=== PATIENT | male | born 1960 | race Caucasian/White ===

== ENCOUNTER 2023-07-27 08:16 | Inpatient (IN) | payer BC, SELFPAY ==
[2023-07-23] VITALS (7 sets, daily range): BP systolic 86–134; BP diastolic 37–79; BMI 28.7; BMI 28.3
--- NOTE | 2023-07-23 10:47 | ED.GENMED ---
History of Present Illness
General
Chief Complaint: Abdominal Symptoms
Time Seen by Provider: 07/23/23 10:39
Travel History
Have you had any contact with someone who has COVID-19?: No
Do you have any symptoms of coronavirus? Fever > 100 degrees, chills, cough, shortness of breath, sore throat, loss of taste or smell, muscle aches, or headache?: No
History of Present Illness
History of Present Illness:
63-year-old male with history of hypertension presents to the emergency department for evaluation of abrupt onset of dizziness and vomiting beginning this morning while at work. He states he got up from his back office and walked through his office
building when the symptoms abruptly began. He had a sensation of right-sided ear discomfort associated with the dizziness. Denies any associated fever, chills, sweats, chest pain, shortness of breath. He states the dizziness is since resolved
while he is lying in the bed however when his eyes are open the symptoms recur. Denies any weakness or numbness to the arms or legs. States that he had an upper respiratory tract infection within the past month.
Review of Systems
Review of Systems
Allergies reviewed?: Yes
All Other Systems: ROS reviewed and negative except as documented in HPI and ROS
Phy Exam
Physical Exam
Physical Exam:
GEN: Well appearing, NAD, WDWN
HEENT: Oral mucosa moist, no scleral icterus, no nasal congestion
Cardiac: Regular rate
Lung: No respiratory distress, no tachypnea
MSK: No gross deformity or injuries
Skin: Good color, no pallor or jaundice, no rashes
Neuro: AO x3; CN II-XII grossly intact. BUE strength 5/5 in all pearson, sensation intact and symmetric. BLE strength 5/5 in all pearson, sensation intact and symmetric. Obvious horizontal nystagmus bilaterally, left beating, present at rest. Pt
unable to tolerate head impulse testing due to vomiting
Psych: Calm, cooperative
Course
Orders/Labs/Results
Orders:
Orders
07/23/23 10:39
Electrocardiogram (*1) Urgent
Reason for Study: Syncope
EKG- Treatment ONCE
07/23/23 10:46
Ondansetron Injectable [Zofran] 4 mg IV NOW STA
diazePAM [Valium Injection] 5 mg IV NOW STA
07/23/23 10:47
CT Head W/o Iv Contrast Urgent
Comment:
Reason For Exam: vertigo
07/23/23 10:49
Ondansetron Injectable [Zofran] 4 mg .ROUTE .STK-MED ONE
07/23/23 10:50
diazePAM [Valium Injection] 10 mg .ROUTE .STK-MED ONE
07/23/23 10:52
Complete Blood Count/With Diff Urgent
Comprehensive Metabolic Panel Urgent
07/23/23 13:01
Dexamethasone Sod Phosphate [Decadron] 10 mg IV NOW STA
07/23/23 13:45
Admit/Transfer Patient As Directed
Co-Sign Provider:
Level of Care: Observation services
Assign to:: Medical/Surgical
Physician / Group: galileo/hospitalist
Diagnosis: vertigo
07/23/23 13:46
Code Status As Directed
Resuscitation Status: Full Code
07/23/23 13:48
Potassium Chloride [KCl] 40 meq PO NOW STA
Abnormal Lab Results
07/23/23
10:52
RBC 4.38 L 10^6/uL
(4.70-6.10)
Hct 37.3 L %
(39.0-52.0)
Potassium 3.3 L mmol/L
(3.5-5.1)
Glucose 162 H mg/dl
(70-99)
07/23/23 10:52
07/23/23 10:52
Vital Signs
Initial and Last Documented VS:
Initial Vital Signs
Pulse
68
07/23/23 10:37
Last Documented Vital Signs
Temp Pulse Resp BP Pulse Ox
97.5 F 67 15 86/37 93
07/23/23 10:43 07/23/23 14:00 07/23/23 14:00 07/23/23 14:00 07/23/23 14:00
MDM/Problems Addressed
MDM/Problems Addressed:
Patient symptoms are most consistent with vestibular neuritis given on fatigue nystagmus but the resolved dizziness symptoms while lying flat. He is profoundly vertiginous when attempting to sit upright and is unsteady on his feet. CT of the head
is unremarkable. He has no other neurologic deficits and no visual anomalies concerning for posterior circulation stroke. Do not feel there is any indication for CT angiogram at this juncture. Given lack of other neurofindings do not feel this
represents CVA thus thrombolytics are not indicated. Will admit to the hospitalist service for ongoing treatment of his peripheral vertigo
*Critical Care Note
Total Time (30-74mins, 75-104mins- exclusive of procedures): Not Applicable
ED Attending Note
-
Portions of this chart may have been created with voice recognition software.� Occasional wrong word or��sound alike� substitutions may have occurred due to the inherent limitations of voice recognition software.
Discharge Plan
Departure
Patient Disposition: Admit
Date of Disposition: 07/23/23
Time of Disposition: 13:06
Presentation/result/management discussed w/ accepting MD/DO: Hospitalist
Discharge Problem:
Acute vestibular neuritis
Interventions
Interventions:
*Risk Screen - Suicide Last Done: 07/23/23 10:37
*General Assessment Last Done: 07/23/23 10:37
*Neglect/Abuse Screening Last Done: 07/23/23 10:37
ED- Fall Risk Assessment Last Done: 07/23/23 10:37
RL-Kmskba-Xetrbigftd Assessment Last Done: 07/23/23 10:37
[2023-07-23] MEDS: VALIUM INJECTION 5 MG IV (10:56)
[2023-07-23] MEDS: ZOFRAN 4 MG IV ×2 (10:57→20:07)
[2023-07-23 10:58] LABS: % Basophils 0.5 % (0-2); % Eosinophils 0.5 % (0-6); % Immature Granulocytes 0.3 % (0-0.5); % Lymphocytes 34.9 % (20.5-51.1); % Monocytes 8.3 % (1.7-9.3); % Neutrophils 55.5 % (42.2-75.2); Absolute Lymphocytes 2.1 10^3/uL (1.2-3.4); Absolute Monocytes 0.5 10^3/uL (0.1-0.6); Absolute Neutrophils 3.4 10^3/uL (1.4-6.5); Hematocrit 37.3 % (39.0-52.0); Hemoglobin 13.2 g/dL (13.0-18.0); Mean Corp Hgb Conc. 35.4 g/dL (33.0-37.0); Mean Corpuscular Hgb 30.1 pg (27.0-31.0); Mean Corpuscular Volume 85.2 fL (80.0-94.0); Mean Platelet Volume 9.4 fL (7.4-10.4); Nucleated Red Blood Cells % 0 % (-); Platelet Count 275 10^3/uL (130-400); Red Blood Cell Count 4.38 10^6/uL (4.70-6.10); Red Cell Dist. Width 12.5 % (11.5-14.5); White Blood Cell Count 6.1 10^3/uL (4.8-10.8)
[2023-07-23 11:14] LABS: ALT (SGPT) 24 U/L (0-50); AST (SGOT) 25 U/L (17-59); Albumin 4.3 g/dl (3.5-5.0); Alkaline Phosphatase 74 U/L (38-126); Blood Urea Nitrogen 16 mg/dl (9-20); Calcium 9.2 mg/dl (8.4-10.2); Carbon Dioxide 25 mmol/L (22-30); Chloride 102 mmol/L (98-107); Estimated Creatinine Clearance 81 ml/min; Glucose 162 mg/dl (70-99); Potassium 3.3 mmol/L (3.5-5.1); Sodium 136 mmol/L (135-145); Total Bilirubin 0.6 mg/dl (0.2-1.3); eGFR > 60.00
[2023-07-23] MEDS: DECADRON 10 MG IV (13:26)
--- NOTE | 2023-07-23 13:38 | HPS.HSE ---
Family Physician
-
Family Physician: Alexander Pugh
Chief Complaint
-
dizziness
History of Present Illness
63-year-old male past medical history as below who is presenting from work with acute onset of dizziness. Patient said he was at work stood up and was walking started with feeling of severe dizziness associated with nausea. Also stated of
right-sided ear discomfort currently. Denies tinnitus. Patient called 911 and came into the ER. Patient states the dizziness is resolved. States his symptoms starts when he stands. Currently resting in ER bed without any difficulty. States of
right ear discomfort. Denies any lightheaded or dizziness while lying down. States the nausea has resolved. No vomiting. Denies any other focal weakness. Denies any chest pain shortness of breath. Denies any abdominal pain. Denies any dysuria
or hematuria or numbing or tingling sensation. Denies any neck pain. States he does take a blood pressure medication of losartan/HCTZ and did not eat or drink anything this morning. States he had while upper respiratory tract infection 1 month
ago.
Medical History
Past Medical History
Past Medical History: Reports HTN and Psychiatric (anxiety )
Past Surgical History: Reports Other
Additional Past Surgical History:
Hernia
Social History
Tobacco: Non-smoker
Alcohol: None
Personal:
Living: With Family
Family History
Family History: Not pertinent
Allergies / Home Medications
Allergies reflects when Allergies were last updated in [facility].
Home Medications with original date entered in [facility]
Allergy/Medication List:
Allergies
Allergy/AdvReac Type Severity Reaction Status Date / Time
No Known Allergies Allergy Unverified 07/23/23 10:48
Home Medications
acetaminophen 500 mg tablet (Tylenol Extra Strength) 500 mg PO QID PRN mild pain 07/23/23
escitalopram oxalate 10 mg tablet 10 mg PO DAILY 07/23/23
gabapentin 300 mg capsule 300 mg PO TID PRN foreign body sensation/throat 07/23/23
losartan 100 mg-hydrochlorothiazide 25 mg tablet 1 tab PO DAILY 07/23/23
tadalafil 5 mg tablet 5 mg PO HS 07/23/23
tamsulosin 0.4 mg capsule 0.4 mg PO DAILY 07/23/23
therapeutic multivitamin 1 tab PO DAILY 07/23/23
tizanidine 2 mg tablet 2 mg PO TID PRN muscle spasms 07/23/23
Review of Systems
-
History Source: Patient and Family
A 12 point ROS was completed and negative except as noted: Yes
Physical Exam
Vital Signs
Vital Signs
Temp Pulse Resp BP Pulse Ox
97.5 F 66 15 116/75 93
07/23/23 10:43 07/23/23 12:00 07/23/23 12:00 07/23/23 12:00 07/23/23 12:00
Physical Exam
General: Well Developed, Well Nourished and No Apparent Distress
HEENT: NormoCephalic, Moist mucous membranes and Atraumatic
Respiratory: Clear
Cardiac: S1/S2 and Regular Rhythm; No Murmur or Rub
GI: Soft, Non Tender, Non Distended and Normal Bowel Sounds; No Organomegaly
Rectal: Deferred by Provider
Musculoskeletal: No Clubbing, No Cyanosis and No Edema
Skin: No Rash
Neuro: Awake, Alert, Oriented, AO x 3 and Nonfocal/grossly intact
Psych: Calm
Laboratory Results
-
07/23/23 10:52
07/23/23 10:52
Laboratory Results
Total Bilirubin 0.6 mg/dl (0.2-1.3) 07/23/23 10:52
AST 25 U/L (17-59) 07/23/23 10:52
ALT 24 U/L (0-50) 07/23/23 10:52
Alkaline Phosphatase 74 U/L (38-126) 07/23/23 10:52
Impression/Plan
-
#Acute onset of dizziness likely secondary to orthostatic hypotension versus BPPV versus vestibular neuritis versus doubt central etiology
Check orthostatic vital signs
Meclizine as needed
Can consider Valium if persistent symptoms
Antinausea meds
IV fluids
CT head negative
No focal neurological deficit. Symptoms seems to have significant improved.
PT in the morning
If no improvement will consider neurology evaluation
#Hypokalemia
Replete and monitor
#Primary hypertension
check orthostatics
on losartan/hctz
#Anxiety
Confirm Lexapro
BPH
Continue Flomax
Neuropathy
cont tizanidine
seems takes gabapentin prn
DVT ppx-lovenox
Full code
Discussed with spouse at bedside in detail.
[2023-07-23] MEDS: KCL 40 MEQ PO (14:34)
[2023-07-23] MEDS: NSS 1000 IV (15:45)
[2023-07-23] MEDS: ANTIVERT 12.5 MG PO (15:46)
[2023-07-23] MEDS: LR 1000 IV (16:49)
[2023-07-23] MEDS: LOVENOX 40 MG SC (20:07)
[2023-07-23] MEDS: NEURONTIN 300 MG PO (20:10)
[2023-07-24] MEDS: LR 1000 IV (00:46)
[2023-07-24] MEDS: ZOFRAN 4 MG IV ×2 (03:25→13:26)
[2023-07-24] MEDS: TYLENOL 500 MG PO ×3 (03:26→20:33)
[2023-07-24] MEDS: MOTRIN 400 MG PO (06:28)
--- NOTE | 2023-07-24 06:40 | PTCARENOTE ---
Pt cont w/ symptoms. Pt w/ nausea intermittently through the night, BELTRAN unrelieved by Tylenol 500 mg. Motrin 400 x 1 given. Pt did not want to get OOB and slept most of the night.
[2023-07-24 07:20] VITALS: BP 112/55; BP 137/80; BP 157/78; PULSE 75; PULSE 82; PULSE 84
[2023-07-24 08:01] LABS: Blood Urea Nitrogen 19 mg/dl (9-20); Calcium 8.8 mg/dl (8.4-10.2); Carbon Dioxide 26 mmol/L (22-30); Chloride 98 mmol/L (98-107); Estimated Creatinine Clearance 91 ml/min; Glucose 168 mg/dl (70-99); Sodium 133 mmol/L (135-145); eGFR > 60.00
[2023-07-24] MEDS: LEXAPRO 10 MG PO (08:56)
[2023-07-24] MEDS: FLOMAX 0.400000000000000022 MG PO (08:56)
[2023-07-24] MEDS: THERAGRAN 1 TABLET PO (08:56)
[2023-07-24 09:04] VITALS: BP 143/78; BP 150/82; PULSE 84; PULSE 90; O2SAT 97
--- NOTE | 2023-07-24 09:42 | PTOTSP ---
Patient presents with possible labyrinthitis due to horizontal nystagmus at rest, + head thrust, unsteady walking, ringing in R ear during episode of dizziness prior to coming to the ED. (-) for BPPV testing. Denies room spinning. Red Flag signs
for double vision new onset within session along with associated BELTRAN and gradually increasing throughout session in the posterior aspect of head on the R side. Denies speech alterations. No LE weakness appreciated.
--- NOTE | 2023-07-24 11:52 | W.PN.HOSP.TC ---
Today's Communication/Plan
-
start steroids
if no improvement neuro input
anti-histamine if needed
Assessment / Plan
Assessment / Plan
#Acute onset of dizziness likely secondary to acute unilateral vestibulopathy
DC IV fluids
CT head negative
PT correspondence noted
start prednisone 60mg
dc meclizine
can consider trial of anti-histamine if persistent symptoms
If no improvement will consider neurology evaluation
#Hypokalemia
Replete and monitor
#Primary hypertension
on losartan/hctz hold for today
#Anxiety
Confirm Lexapro
BPH
Continue Flomax
Neuropathy
cont tizanidine
seems takes gabapentin prn
DVT ppx-lovenox
Full code
Anticipated Discharge: Within 24 hours
Subjective/Interval History
-
Date of Service: July 24, 2023
states was nauseous earlier
states of R sided headache and blurry vision
feels unsteady
dizzy upon standing up
Objective Data
-
Labs:
Laboratory Results
07/24/23
06:36
Sodium 133 L
Potassium 4.0
Chloride 98
Carbon Dioxide 26
BUN 19
Creatinine 0.8
Glucose 168 H
Calcium 8.8
Vital Signs:
Vital Signs
Temp Pulse Resp BP Pulse Ox
98.1 F 75 18 112/55 100
07/24/23 07:20 07/24/23 07:20 07/24/23 07:20 07/24/23 07:20 07/24/23 07:20
I&O
07/23/23 07/24/23 07/25/23
06:59 06:59 06:59
Intake Total 120 / 120
Output Total 800 / 800
Balance -680 / -680
Physical Exam
-
General: Well Developed and No Apparent Distress
HEENT: Normocephalic, Atraumatic, Moist Mucous Membranes and Other (+nystagmus )
Respiratory: Clear to Auscultation
Cardiac: Regular Rhythm and S1/S2; Negative Murmur, Rub or Gallop
GI: Soft, Nontender, Nondistended and Normal Bowel Sounds; Negative Organomegaly
Rectal: Deferred by Provider
Musculoskeletal: No Clubbing, No Cyanosis and No Edema
Skin: Negative Rash
Neuro: Awake, Alert, Oriented, No Motor Deficits and Nonfocal/Grossly Intact
Psych: Calm
[2023-07-24] MEDS: NEURONTIN 300 MG PO ×2 (12:03→20:34)
[2023-07-24] MEDS: DELTASONE 60 MG PO (13:02)
[2023-07-24] MEDS: TORADOL 15 MG IV (15:08)
[2023-07-24] MEDS: BENADRYL 25 MG IV (15:08)
[2023-07-24] MEDS: REGLAN 10 MG IV (15:09)
[2023-07-24 15:13] VITALS: BP 123/69
--- NOTE | 2023-07-24 15:20 | CM ---
Met with patient and his at the bedside; initial assessment completed
Pharmacy verified: [facility] [address] [place] [address]
Patient reports he lives with his in a bi-level home; 6 steps in; 8 steps to the main level of the home; bath has tub with shower
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
DME: TENS unit for neck pain
SNF/Rehab/Home Care utilization history: none
Transport: will provide ride home
Plan: discharge to home when stable; if home PT recommended, patient is agreeable
[2023-07-24] MEDS: LOVENOX 40 MG SC (17:13)
[2023-07-24 23:55] VITALS: BP 140/67
[2023-07-25 07:35] VITALS: BP 116/67
[2023-07-25] MEDS: DELTASONE 60 MG PO (08:41)
[2023-07-25] MEDS: TYLENOL 500 MG PO ×2 (08:41→16:06)
[2023-07-25] MEDS: FLOMAX 0.400000000000000022 MG PO (08:42)
[2023-07-25] MEDS: NEURONTIN 300 MG PO (08:42)
[2023-07-25] MEDS: LEXAPRO 10 MG PO (08:42)
[2023-07-25] MEDS: THERAGRAN 1 TABLET PO (08:42)
--- NOTE | 2023-07-25 11:36 | W.PN.HOSP.TC ---
Today's Communication/Plan
-
MRI/MRA pending
asa/plavix
tx to tele
Assessment / Plan
Assessment / Plan
#Acute onset of dizziness and now with diplopia/left UE ataxia r/o central cause-r/o CVA
#Headache
DC IV fluids
CT head negative
Continue meclizine prn
continue steroids till mri results
d/w with neurology
agree with MRI brain and MRA head and neck
anti-platelet agents per neurology-started on aspirin and plavix
Check lipid panel and a1c
neuro checks
TTE in am
tx to tele
#Hypokalemia
Replete and monitor
#Primary hypertension
restarted losartan/hctz
BP stable
#Anxiety
Cont Lexapro
BPH
Continue Flomax
Neuropathy
cont tizanidine
seems takes gabapentin prn
DVT ppx-lovenox
Full code
d/w with neurology
d/w with RN
Anticipated Discharge: > 48 hours
Subjective/Interval History
-
Date of Service: July 25, 2023
States improvement in lightheadedness/vertigo symptoms
States of left eye diplopia and LUE coordination issues
Also states of headache diffuse.
Objective Data
-
Vital Signs:
Vital Signs
Temp Pulse Resp BP Pulse Ox
98.6 F 70 18 116/67 96
07/25/23 07:35 07/25/23 07:35 07/25/23 07:35 07/25/23 07:35 07/25/23 07:35
I&O
07/24/23 07/25/23 07/26/23
06:59 06:59 06:59
Intake Total 120 / 120 720 / 720
Output Total 800 / 800 1350 / 1350
Balance -680 / -680 -630 / -630
Physical Exam
-
General: Well Developed and No Apparent Distress
HEENT: Normocephalic, Atraumatic, Moist Mucous Membranes and Other (+nystagmus )
Respiratory: Clear to Auscultation
Cardiac: Regular Rhythm and S1/S2; Negative Murmur, Rub or Gallop
GI: Soft, Nontender, Nondistended and Normal Bowel Sounds; Negative Organomegaly
Rectal: Deferred by Provider
Musculoskeletal: No Clubbing, No Cyanosis and No Edema
Skin: Negative Rash
Neuro: Awake, Alert, Oriented and AO x 3; Negative Slurred Speech or Facial Droop
Psych: Calm
[2023-07-25] MEDS: LIPITOR 40 MG PO (12:46)
[2023-07-25] MEDS: ASPIRIN 325 MG PO (12:46)
[2023-07-25] MEDS: PLAVIX 300 MG PO (12:47)
--- NOTE | 2023-07-25 13:17 | CON.NEURO4 ---
Consultation - Neurology 4
-
CONSULTING PHYSICIAN: Kb Ojeda
REFERRING PHYSICIAN: Hospitalist
DICTATED BY: Kb Ojeda
DATE/TIME OF REQUEST: 07/25/22
DATE/TIME OF CONSULTATION: 07/25/22
Reason for Consultation: Vertigo, left arm incoordination
History of Present Illness:
Patient is a right-handed 63-year-old male with a past medical history of hypertension presented to hospital with acute onset of dizziness, walking difficulty as well as vision changes starting at around 10 AM on 07/23.
Patient had woken up in the morning and 07/23 feeling fine without any recent health problems. He did have upper respiratory tract infection and suspected viral illness around 1 month ago. No recent head or neck trauma.
Patient was at work at 10 AM when he had sudden onset of right eye hearing change and high-pitched noise and then sudden onset dizziness and vertigo did have episodes of vomiting that day and had significant gait issues. Also has had significant
headache since this day. His notes had some slurred speech on that day but this appears improved. Patient denies any dysphagia.
Patient does describe some binocular diplopia, and also is noted that there is been some left hand incoordination noticed on 07/23.
Also describes some chronic lower neck and left shoulder pain going on for some time though this has not been accompanied by any weakness or paresthesia until the more recent onset of left hand incoordination on 07/23.
Patient does take aspirin frequently for musculoskeletal pain status no history of TIA stroke coronary artery disease palpitations chest pain or dyspnea.
Patient relates known history of cerebral aneurysm in brother and father both also had problems with alcoholism.
Past Medical History: Hypertension, anxiety
Surgical History: Hernia repair
Family History: Father and brother both had known cerebral aneurysms
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
Allergies: No known drug allergies
Home Medications:
Review of Symptoms:
Patient denies any fever, headache, chest pain, shortness of breath, GI or symptoms.
Physical Exam:
Middle-age man well-appearing no acute distress well-groomed well-nourished no signs of head trauma oropharynx is clear eyes are clear neck supple no masses heart rate regular breathing unlabored abdomen obese soft nontender no lower extremity edema
Neurologic Examination:
Mental status is unremarkable patient is awake and alert fully oriented answers all questions appropriately no aphasia no neglect normal attention
Cranial nerve examination shows normal resting gaze no ptosis, pupils 3 mm equal round react light bilaterally no evidence of Keyanna syndrome. On extraocular movement testing there is gaze evoked direction changing nystagmus with left beating
nystagmus on leftward gaze and right beating nystagmus on rightward gaze. Extraocular movements are full. There is no dysarthria, smile is symmetric, tongue is midline. Normal head impulse test. Negative test of skew.
Motor examination shows no tremor or parkinsonism normal bulk and tone of the muscles. There is minor amount of left arm downward drift with the arms held abducted in front of him. Power is 5/5 for shoulder abduction arm flexion hip flexion knee
extension ankle dorsiflexion and plantarflexion.
Normal sensory exam to light touch in the face arms and legs.
Reflexes 2+ biceps triceps brachialis patella and Achilles.
Significant ataxia on finger-nose testing on the left arm.
Gait is wide-based with significant ataxia.
Neuro Imaging: CT head non contrast unremarkable.
Impressions
1. Acute onset of a vestibular syndrome but with additional features of direction changing nystagmus, binocular diplopia and left sided arm ataxia indicate likely cerebellar or medullary infarct. Ataxia of the left arm indicates most likely
left-sided cerebellar or medullary infarction. Right sided tinnitus and hearing change may be due to the same infarct or due to additional jayne of ischemia to right-sided anterior inferior cerebellar artery territory
2. Hypertension
Patient has the following risk factors for their symptoms:
IV Tenecteplase/IAT candidacy
Recommendations:
1. Goal normotension normoglycemia
2. Neurologic checks NIH stroke scale
3. Give aspirin 325 mg and clopidogrel 300 mg now, start DAPT therapy tentatively for 3 weeks in duration but this will depend on vessel imaging of the head and neck.
4. Start atorvastatin 40 mg daily
5. Check lipid panel and hemoglobin A1c
6. Monitor on telemetry and check transthoracic echocardiogram
7. Will continue with as needed meclizine and will continue with prednisone for total of 4 days given this can help treating nausea and vertigo
8. Speech physical Occupational Therapy evaluations, anticipate patient will need PMR consult strong consideration for acute rehabilitation given significant gait ataxia
9. Provide stroke educational material
10. Check MRI of the brain and MRA of the head without contrast and MRI of the neck with contrast
Will follow
Discussed patient care with: Patient and his , hospitalist
[2023-07-25 14:09] VITALS: BP 136/75; BP 136/77; PULSE 82; O2SAT 94
[2023-07-25 15:32] VITALS: BP 146/82; BP 157/88; PULSE 67; PULSE 68
[2023-07-25 19:23] VITALS: BP 138/80
[2023-07-25 23:49] VITALS: BP 139/94
[2023-07-26] VITALS (10 sets, daily range): BP systolic 130–160; BP diastolic 78–89; PULSE 60–77; O2SAT 94–95
[2023-07-26] MEDS: TYLENOL 500 MG PO ×2 (01:15→22:30)
--- NOTE | 2023-07-26 04:14 | PTCARENOTE ---
Q4 neuro checks completed. 0326 BP 160/88, [place] N[employer]ITION SERVICES AIDE made aware, PRN Hydral 5mg ordered. Before administration repeat BP was under parameters to give. Pt with no complaints at this time.
[2023-07-26 06:21] LABS: % Basophils 0.3 % (0-2); % Immature Granulocytes 0.4 % (0-0.5); % Lymphocytes 26.8 % (20.5-51.1); % Monocytes 10.7 % (1.7-9.3); % Neutrophils 61.8 % (42.2-75.2); Absolute Lymphocytes 2.1 10^3/uL (1.2-3.4); Absolute Monocytes 0.8 10^3/uL (0.1-0.6); Absolute Neutrophils 4.7 10^3/uL (1.4-6.5); Hematocrit 35.1 % (39.0-52.0); Hemoglobin 12.2 g/dL (13.0-18.0); Mean Corp Hgb Conc. 34.8 g/dL (33.0-37.0); Mean Corpuscular Hgb 30.7 pg (27.0-31.0); Mean Corpuscular Volume 88.2 fL (80.0-94.0); Nucleated Red Blood Cells % 0 % (-); Platelet Count 197 10^3/uL (130-400); Red Blood Cell Count 3.98 10^6/uL (4.70-6.10); Red Cell Dist. Width 12.2 % (11.5-14.5); White Blood Cell Count 7.6 10^3/uL (4.8-10.8)
[2023-07-26 06:35] LABS: ALT (SGPT) 21 U/L (0-50); AST (SGOT) 27 U/L (17-59); Albumin 3.5 g/dl (3.5-5.0); Alkaline Phosphatase 56 U/L (38-126); Blood Urea Nitrogen 20 mg/dl (9-20); Calcium 8.7 mg/dl (8.4-10.2); Carbon Dioxide 30 mmol/L (22-30); Chloride 102 mmol/L (98-107); Estimated Creatinine Clearance 73 ml/min; Glucose 118 mg/dl (70-99); HDL Cholesterol 42 mg/dl; LDL Cholesterol, Calculated 112 mg/dl; Potassium 3.9 mmol/L (3.5-5.1); Sodium 134 mmol/L (135-145); Total Bilirubin 0.7 mg/dl (0.2-1.3); Total Cholesterol 192 mg/dl (50-199); Total Protein 5.9 g/dl (6.3-8.2); Triglyceride 191 mg/dl (10-149); Very Low Density Lipoprotein 38 mg/dl (0-30); eGFR > 60.00
--- NOTE | 2023-07-26 06:52 | W.PN.NEURO.1 ---
Today's Communication / Plan
-
-Goal normotension
-Neurologic checks NIH stroke scale
-Continue aspirin and clopidogrel total of 3 months then aspirin 81 mg daily thereafter
-Atorvastatin 40 mg daily
-Monitor on cardiac telemetry check transthoracic echocardiogram
-PT OT evaluations
-Meclizine PRN for headache, can finish Prednisone which may have given symptomatic relief of dizzienss
-Anticipate will need acute rehabilitation given gait ataxia
-Would monitor in the hospital for another 2 days given the large size of cerebellar stroke, he is at the end of the window for maximum cerebral edema now on post stroke day # 5, not recommending any hypertonic saline at this time
-Discussed with patient my recommendation that he not drive until further neurology evaluation
-Will need outpatient ophthalmology evaluation for the diplopia that is from the cerebellar stroke, may benefit from prism glasses, eye patch could be used if very uncomfortable
Will continue to follow
Neuro Assessment/Plan
Assessment
63-year-old man with past medical history of hypertension, anxiety presented hospital with sudden onset of vertigo, also with left arm ataxia and binocular vertical diplopia.
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
MRA of the head and neck demonstrates some vessel abnormalities in the posterior circulation with evidence of intracranial atherosclerosis in intracranial vertebral arteries as well as basilar artery. No occlusions, no pathology that would warrant
endovascular intervention.
Etiology of stroke highly likely to be atherosclerotic/large vessel atherosclerotic disease in posterior circulation, risk factors of age, obesity, hypertension
Patient had onset of stroke symptoms on 07/20 1 in the morning and is postop day number 5, is moving out of the window of maximum cerebral edema without evidence of obstructive hydrocephalus or deterioration which can happen with large cerebellar
strokes
Subjective/Objective
Subjective Data
Date of Service: July 26, 2023
No acute events, has headache, no vomiting or nausea, has vertical diplopia, left hand incoordination, discussed likely stroke, workup, monitoring
Objective Data
Vital Signs
Temp Pulse Resp BP Pulse Ox
97.8 F 54 20 156/86 96
07/26/23 03:26 07/26/23 03:26 07/26/23 03:26 07/26/23 04:11 07/26/23 04:28
Lab Results
07/26/23 05:25
07/26/23 05:25
Sodium 134 mmol/L (135-145) L 07/26/23 05:25
Potassium 3.9 mmol/L (3.5-5.1) 07/26/23 05:25
BUN 20 mg/dl (9-20) 07/26/23 05:25
Glucose 118 mg/dl (70-99) H 07/26/23 05:25
Calcium 8.7 mg/dl (8.4-10.2) 07/26/23 05:25
LDL Cholesterol, Calc 112 mg/dl 07/26/23 05:25
Patient Allergies
No Known Allergies Allergy (Unverified 07/23/23 10:48)
Review of Systems
-
History Source: Patient
All other systems: Reviewed and negative
Constitutional: No Symptoms
EENT: No Symptoms Reported
Respiratory: No Symptoms
Cardiac: No Symptoms
Abdomen/GI: No Symptoms
Genitourinary: No Symptoms
Musculoskeletal: No Symptoms
Skin: No Symptoms
Neuro: Dizzy, Headache, Ataxia and See existing Neuro Note
Endocrine: No Symptoms
Hematologic / Lymphatic: No Symptoms
Allergy / Immunology: No Symptoms
Physical Exam
-
General: Comfortable
Eyes: No Ptosis
HEENT: Normocephalic
Neck: No Bruits Bilaterally
Respiratory: Clear to Auscultation
Cardiac: Regular Rhythm
GI: Normal Bowel Sounds
Skin: Unremarkable
Extremities: No Clubbing
Psych: Intact Judgement/Insight; Negative Agitated
Extended Neurological Exam
Mood & Affect: Mood Unremarkable and Affect Unremarkable
Attention Span & Concentration: Awake, Alert and Interactive
Memory: Unremarkable
Tremor: Hand Tremor Absent
Involuntary Movement: None
Speech: Negative Expressive Aphasia, Receptive Aphasia or Dysarthric
Cranial Nerve II: Left Eye: Pupillary Reactivity Unremarkable, Pupillary Size Unremarkable and Visual Salgado Intact
Cranial Nerve II: Right Eye: Pupillary Reactivity Unremarkable, Pupillary Size Unremarkable and Visual Salgado Intact
Cranial Nerves III, IV, : Extraocular Movement: Extraocular Movement Full in all Directions and Other (Direction changing gaze evoked nystagmus)
Cranial Nerve VII: Facial Symmetry: Normal Facial Symmetry
Muscle Strength, Overall: Full Throughout
Pronator Drift: Drift in Left Upper Extremity
Touch Sensation: Unremarkable
Coordination: Other (Left arm ataxia on finger to nose, minimal on left heel blair maneuver)
Babinski Sign: Absent Bilaterally
Modified Callahan Score (MRS)
-
MRS Score:
Data Reviewed
-
CT Head: Report Reviewed and Image Reviewed
MRI Head: Report Reviewed and Image Reviewed
MRA Head: Report Reviewed and Image Reviewed
MRA Neck: Report Reviewed and Image Reviewed
Labs: Report Reviewed
[2023-07-26] MEDS: ATIVAN 1 MG IV (08:44)
[2023-07-26] MEDS: NSS (PRESERVATIVE FREE) 0.5 ML IV (08:44)
[2023-07-26] MEDS: FLOMAX 0.400000000000000022 MG PO (08:45)
[2023-07-26] MEDS: PLAVIX 75 MG PO (08:45)
[2023-07-26] MEDS: ASPIR LOW (ENTERIC COATED) 81 MG PO (08:45)
[2023-07-26] MEDS: THERAGRAN 1 TABLET PO (08:45)
[2023-07-26] MEDS: LEXAPRO 10 MG PO (08:45)
[2023-07-26] MEDS: DELTASONE 60 MG PO (08:45)
[2023-07-26] MEDS: HYZAAR 100-25 TABLET 1 TAB PO (08:45)
[2023-07-26] MEDS: FLUSH (NSS) 1 FLUSH IV (08:46)
[2023-07-26 09:00] LABS: Glycohemoglobin (HgbA1c) 7.4 % (4.0-5.6)
--- NOTE | 2023-07-26 11:12 | W.PN.HOSP.TC ---
Today's Communication/Plan
-
.
Assessment / Plan
Assessment / Plan
Physical Exam
-
General: Well Developed and No Apparent Distress
HEENT: Normocephalic, Atraumatic, Moist Mucous Membranes.
Respiratory: Clear to Auscultation
Cardiac: Regular Rhythm and S1/S2; Negative Murmur, Rub or Gallop
GI: Soft, Nontender, Nondistended and Normal Bowel Sounds.
Rectal: No rectal bleeding noted.
Musculoskeletal: No Clubbing, No Cyanosis and No Edema
Skin: Negative Rash
Neuro: Awake, Alert, Oriented, AO x 3 and Nonfocal/Grossly Intact
Psych: Calm
#Acute onset of dizziness and now with diplopia/left UE ataxia r/o central cause-r/o CVA
#Headache
DC IV fluids
CT head negative
Continue meclizine prn
continue steroids till mri results
d/w with neurology
agree with MRI brain and MRA head and neck
anti-platelet agents per neurology-started on aspirin and plavix
Check lipid panel and a1c
neuro checks
TTE in am
tx to tele
# Claustrophobia
will give IV Ativan before MRI studies
# Hyponatremia, mild
#Hypokalemia
Replete and monitor
#Primary hypertension
restarted losartan/hctz
BP stable
#Anxiety
Cont Lexapro
BPH
Continue Flomax
Neuropathy
cont tizanidine
seems takes gabapentin prn
DVT ppx, SQ Heparin
Full code
Total time spent to see the patient, examine the patient on the floor, review data and lab results, discuss treatment plan with patient and nursing staff around 55 minutes
Anticipated Discharge: Within 24 hours
Subjective/Interval History
-
Date of Service: July 26, 2023
No chest pain
No sob
diplopia at times
Objective Data
-
Labs:
Laboratory Results
07/26/23
05:25
WBC 7.6
Hgb 12.2 L
Hct 35.1 L
Plt Count 197 D
Sodium 134 L
Potassium 3.9
Chloride 102
Carbon Dioxide 30
BUN 20
Creatinine 1.0
Glucose 118 H
Calcium 8.7
Total Bilirubin 0.7
AST 27
ALT 21
Alkaline Phosphatase 56
Vital Signs:
Vital Signs
Temp Pulse Resp BP Pulse Ox
98.7 F 72 18 153/85 94
07/26/23 07:35 07/26/23 08:45 07/26/23 07:35 07/26/23 08:45 07/26/23 08:37
I&O
07/25/23 07/26/23 07/27/23
06:59 06:59 06:59
Intake Total 720 / 720 1140 / 1140
Output Total 1350 / 1350 300 / 300
Balance -630 / -630 1140 / 1140 -300 / -300
--- NOTE | 2023-07-26 16:14 | PTCARENOTE ---
Pt AAO x3, LAKHANI well; sits on side of bed with minimal assistance; gait very unsteady with attempts at ambulation. Denies dizziness. Speech clear, pt still c/o blurry vision with both eyes open; says vision is better 'when I keep one eye closed'.
NIHSS 0. VSS. Telemetry:NSR. On room air- pulse ox 94%, no c/o SOB. Abd large, soft, dyan PO well, no dysphagia noted. Voiding clear yellow urine in urinal. Resting in bed at present. Will continue to monitor.
--- NOTE | 2023-07-26 17:43 | CON.MD ---
Documented by User: Roxana Solis PA-C 07/27/23 16:03
Consultation - Medical
-
Referring Provider: Juani Galan
Chief Complaint: . CVA with ataxia.
History of Present Illness: 63-year-old right-handed male with PMH of (hypertension, Anxiety, BPH) presents to the emergency department on 07/23/2023 for evaluation of abrupt onset dizziness, vomiting and associated right-sided ear discomfort.
Denies any weakness or numbness to the arms or legs.� States that he had an upper respiratory tract infection within the past month. CT scan of head was negative and his symptoms were felt to be most consistent with vestibular neuritis given on
fatigue nystagmus and resolved dizziness while lying flat and profoundly vertiginous when attempting to sit upright and unsteady on his feet.�He was started on Prednisone. He had no other neurologic deficits and no visual anomalies concerning for
posterior circulation stroke and thrombolytics were not indicated.
Seen by neurology who recommended aspirin 325 mg, clopidogrel 300 mg and starting DAPT therapy tentatively for 3 weeks duration pending imaging of his neck and head due to additional features of direction changing nystagmus, binocular diplopia and
left-sided arm ataxia likely cerebellar or medullary infarct. He was also started on atorvastatin.
MRI brain demonstrates a acute to subacute infarction involving the central and left superior cerebellar hemisphere, also extending slightly anteriorly to involve the posterior angelica and midbrain.
MRA of the head and neck demonstrates some vessel abnormalities in the posterior circulation with evidence of intracranial atherosclerosis in intracranial vertebral arteries as well as basilar artery.� No occlusions, no pathology that would warrant
endovascular intervention.
Etiology of stroke highly likely to be atherosclerotic/large vessel atherosclerotic disease in posterior circulation, risk factors of age, obesity, hypertension
Echo: Normal biventricular size and systolic function without regional wall motion
�abnormality. Estimated LVEF 60-65%.
�Trace aortic regurgitation.
Past Medical History:
Procedure History: Hernia repair
Family History: Father and brother both had known cerebral aneurysms
Social History:
Functional Level Premorbidly: Independent with all activities
Functional Level Currently: Requires mod assist x 1 for transfer from bed to rolling walker and for toilet transfer secondary to instability. Cues for hand placement with transfer and to not pull from rolling walker. Heavy posterior lean with
transfers.Ambulated 12 feet x 1 +25 feet x 2 with rolling walker and assistance ranging from mod assist x 1 to mod assist x 2 entire area has been navigating in front of chair. Ataxic gait pattern and poor coordination, wide POS, increased use of
upper extremities on rolling walker, staggered stance and mobility, shuffling gait. Can stand with strong support of 2 people.
Tobacco: Denies
Alcohol: Denies
Drug use: Denies
Lives with: Spouse
24-hour assistance available:
Number of floors: 2, split-level home
# steps to enter:6
# steps to second floor: 10 steps
Potential First floor set up:No
Driving: yes
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
�
Allergies:
Allergy/AdvReac Type Severity Reaction Status Date / Time
No Known Allergies Allergy Unverified 07/23/23 10:48
Review of Systems:
Constitutional: (x) Normal _
Eye: (x) diplopia
Ear/Nose/Throat: (x) Normal _
Respiratory: (x) Normal _
Cardiovascular: (x) HTN
Gastrointestinal: (x) Normal _
Genitourinary: (x) Normal _
Musculoskeletal: (x) Normal _
Integumentary: (x) Normal _
Neurologic: (x) cva, ataxia
Psychiatric: (x) Normal _
Endocrine: (x) Normal _
Hematologic/Lymphatic: (x) Normal _
Allergic/Immunologic: (x) Normal _
Medications:
Active Current Visit Medication List
Category Date Time Status
0.9% Sodium Chloride [Nss (Preservative Free)] Med 07/26/23 08:42 Active
0.5 ml IV PRN PRN
Acetaminophen [Tylenol] Med 07/23/23 15:12 Active
500 mg PO QIDPRN PRN
Aspirin Low Dose EC [Aspir Low (Enteric Coated)] Med 07/26/23 08:00 Active
81 mg PO DAILY
Clopidogrel Bisulfate [Plavix] Med 07/26/23 08:00 Active
75 mg PO DAILY
Escitalopram Oxalate [Lexapro] Med 07/24/23 08:00 Active
10 mg PO DAILY
Flush (0.9% Sodium Chloride) [Flush (Nss)] Med 07/23/23 16:00 Active
See Dose Instructions IV PER PROTOCOL
Gabapentin [Neurontin] Med 07/23/23 19:50 Active
300 mg PO TIDPRN PRN
Heparin Med 07/26/23 20:00 Active
5,000 units SC Q12
HydrALAZINE [Apresoline] Med 07/26/23 03:47 Active
5 mg IV Q4HPRN PRN
Lorazepam [Ativan] Med 07/26/23 08:31 Active
1 mg IV PRN PRN
Losartan/Hydrochlorothiazide [Hyzaar 100-25 Tablet] Med 07/26/23 08:00 Active
1 tab PO DAILY
Meclizine [Antivert] Med 07/23/23 15:12 Active
12.5 mg PO Q8HPRN PRN
Multivitamin [Theragran] Med 07/24/23 08:00 Active
1 tablet PO DAILY
Ondansetron Injectable [Zofran] Med 07/23/23 15:12 Active
4 mg IV Q6HPRN PRN
Tamsulosin [Flomax] Med 07/24/23 08:00 Active
0.4 mg PO DAILY
Tizanidine [Zanaflex] Med 07/23/23 15:12 Active
2 mg PO TIDPRN PRN
Vitals:
Temp Pulse Resp BP Pulse Ox
97.9 F 77 18 143/70 95
07/27/23 07:00 07/27/23 08:42 07/27/23 07:00 07/27/23 08:42 07/27/23 11:12
Height 5 ft 8 in
Actual Weight 84.397 kg
Body Mass Index (BMI) 28.3
Physical Exam:
General Appearance/Observation: Well-developed, well-nourished individual in no apparent distress.
Pain/Comfort Assessment: Denies
Mood/Affect: Appropriate, pleasant
Integumentary/Operative Site:
�� Pressure Ulcer Evaluation: absent over heels.
��
�� Other Type of Wound: absent
��
Eyes: Conjunctiva/Lids: normal ��� Pupils: pupils equal round and reactive to light and Accommodation
Ears/Nose/Throat: oral mucosa moist,� throat clear.������������ Lips/Teeth/Gums: normal
Neck: No muscle spasm or tenderness
Cardiovascular: Heart: regular, no murmur
Pulses: dorsalis pedis 2+ bilaterally
Respiratory: Respiratory Effort/Chest Expansion: normal ������ Auscultation: Clear to auscultation bilaterally
Gastrointestinal: abdomen not tender, no distension, normal abdominal bowel sounds
Genitourinary: No Jacobs
Extremities: Edema: None Cyanosis: None Trophic changes: None
Neurology Exam:
Orientation: Alert, Oriented to self, Time, Place
Memory: Intact for immediate medical concerns
Higher cortical function
Repetition: Intact
Comprehension: Intact
Two step command: Intact
Naming: Intact
Cranial Nerves:
�� CNII: Pupillary light reflex: Intact��� Visual Field: Intact
�� CN III, IV, : Extraocular muscles: Intact
�� CN V: Facial Sensation at Forehead: Intact, Maxilla: Intact, Mandible: Intact
�� CN VII: Facial movement: Symmetric
�� CN VIII: Hearing: Normal
�� CN IX/X: Speech & swallow: Normal, Position of Uvula: Midline
�� CN XI: Shoulder shrug: Symmetric
�� CN XII: Tongue protrusion: Midline
Sensory:
�� Light touch: Intact in bilateral upper and lower extremities
��
Reflexes:
�� Biceps: 2+ bilaterally
�� Brachioradialis: 2+ bilaterally
�� Triceps: 2+ bilaterally
�� Patellar: 2+ bilaterally
�� Achilles: 2+ bilaterally
�� Babinski: Down going bilaterally
�� Clonus: None
�� Victor Hugo: positive bilaterally
Cerebellar: Dysmetria/Ataxia:on the left side with nose to finger coordination
Musculoskeletal:
Motor: (Manual muscle scale 0-5)
Muscle SA EF WE EE FF FA HF KE DF EHL PF
Right� 5 5 5 5 5 5 5 5 5 5 5
Left 5 5 5 5 5 5 5 5 5 5 5
Tone: Normal in all extremities
Range of Motion: Passively within normal limits in all extremities
Lab Results
Labs
WBC 7.6 10^3/uL (4.8-10.8) 07/26/23 05:25
RBC 3.98 10^6/uL (4.70-6.10) L 07/26/23 05:25
Hgb 12.2 g/dL (13.0-18.0) L 07/26/23 05:25
Hct 35.1 % (39.0-52.0) L 07/26/23 05:25
MCV 88.2 fL (80.0-94.0) 07/26/23 05:25
MCH 30.7 pg (27.0-31.0) 07/26/23 05:25
MCHC 34.8 g/dL (33.0-37.0) 07/26/23 05:25
RDW 12.2 % (11.5-14.5) 07/26/23 05:25
Plt Count 197 10^3/uL (130-400) D 07/26/23 05:25
MPV 10.0 fL (7.4-10.4) 07/26/23 05:25
Abs Immat Gran (auto) 0.0 10^3/uL (0-0.05) 07/26/23 05:25
Absolute Neuts (auto) 4.7 10^3/uL (1.4-6.5) 07/26/23 05:25
Absolute Lymphs (auto) 2.1 10^3/uL (1.2-3.4) 07/26/23 05:25
Absolute Monos (auto) 0.8 10^3/uL (0.1-0.6) H 07/26/23 05:25
Absolute Eos (auto) 0.0 10^3/uL (0-0.7) 07/26/23 05:25
Absolute Basos (auto) 0.0 10^3/uL (0-0.2) 07/26/23 05:25
Immature Gran % 0.4 % (0-0.5) 07/26/23 05:25
Neutrophils % 61.8 % (42.2-75.2) 07/26/23 05:25
Lymphocytes % 26.8 % (20.5-51.1) 07/26/23 05:25
Monocytes % 10.7 % (1.7-9.3) H 07/26/23 05:25
Eosinophils % 0.0 % (0-6) 07/26/23 05:25
Basophils % 0.3 % (0-2) 07/26/23 05:25
Nucleated RBC % 0 % (-) 07/26/23 05:25
Sodium 134 mmol/L (135-145) L 07/26/23 05:25
Potassium 3.9 mmol/L (3.5-5.1) 07/26/23 05:25
Chloride 102 mmol/L (98-107) 07/26/23 05:25
Carbon Dioxide 30 mmol/L (22-30) 07/26/23 05:25
BUN 20 mg/dl (9-20) 07/26/23 05:25
Creatinine 1.0 mg/dL (0.7-1.3) 07/26/23 05:25
Estimated Creat Clear 73 ml/min 07/26/23 05:25
eGFR > 60.00 07/26/23 05:25
Glucose 118 mg/dl (70-99) H 07/26/23 05:25
Hemoglobin A1c 7.4 % (4.0-5.6) H 07/26/23 05:25
Calcium 8.7 mg/dl (8.4-10.2) 07/26/23 05:25
Total Bilirubin 0.7 mg/dl (0.2-1.3) 07/26/23 05:25
AST 27 U/L (17-59) 07/26/23 05:25
ALT 21 U/L (0-50) 07/26/23 05:25
Alkaline Phosphatase 56 U/L (38-126) 07/26/23 05:25
Total Protein 5.9 g/dl (6.3-8.2) L 07/26/23 05:25
Albumin 3.5 g/dl (3.5-5.0) 07/26/23 05:25
Triglycerides 191 mg/dl (10-149) H 07/26/23 05:25
Total Cholesterol 192 mg/dl (50-199) 07/26/23 05:25
LDL Cholesterol, Calc 112 mg/dl 07/26/23 05:25
VLDL Cholesterol, Calc 38 mg/dl (0-30) H 07/26/23 05:25
HDL Cholesterol 42 mg/dl 07/26/23 05:25
Hepatitis C Antibody Cancelled 07/23/23 15:30
�
Diagnostic Results: as per HPI
Assessment 63-year-old right-handed male with PMH of (hypertension, Anxiety, BPH) presents to the emergency department on 07/23/2023 for evaluation of abrupt onset dizziness, vomiting and associated right-sided ear discomfort. MRI brain
demonstrates a acute to subacute infarction involving the central and left superior cerebellar hemisphere, also extending slightly anteriorly to involve the posterior angelica and midbrain.
Plan
PT/OT to increase independence with ADLs, improve balance, coordination, endurance, strength, mobility, community reintegration, decreased burden of care on others and family education.
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 Neuro recommending:aspirin and clopidogrel total of 3 months then aspirin 81 mg daily thereafter. Secondary prophylaxis with aspirin, statin, and blood
pressure control (SBP less than 180 and diastolic less than 100 to participate with therapy for ischemic stroke). Continue to monitor neurologic status.
Headache: per neuro can finish prednisone, Meclizine
Diplopia: -Per neurology: Will need outpatient ophthalmology evaluation for the diplopia from cerebellar stroke, may benefit from prism glasses, eye patch could be used if very uncomfortable
Neuropathy: cont Gabapentin 300mg tid prn- may change to standard order if tolerating
HTN:losartan/HCTZ 100/25mg. , monitor closely
HLD: Atorvastatin
Psych: Psychology consult.�Lexapro. Monitor mood,
Skin: monitor for pressure sores/rashes/lesions.
Pain: acetaminophen or oxycodone as needed.
Bowel: Colace and Senna, PRN bisacodyl.
Bladder: Time void, PVRs, PRN straight cath.
BPH: Continue Flomax
GI Prophylaxis: Pantoprazole
DVT Prophylaxis: Medical and heparin 5000 units SQ bid
Pulmonary: Incentive spirometry
Safety: Continue to reinforce assistance with all transfers.
Code Status:� Full code
Dispo (date/plan/equipment needs): Home with family care.� Social history reviewed.
Functional and Medical Goals: Modified Independent with ADL�s, ambulation, transfers
SUMMARY RECOMMENDATIONS
Discharge Destination: Acute inpatient rehabilitation to increase independence with ADLs, improve balance, coordination, endurance, strength, mobility, community reintegration, decreased burden of care on others and family education.
Currently requires mod assist x 1 for transfer from bed to rolling walker and for toilet transfer secondary to instability. Cues for hand placement with transfer and to not pull from rolling walker. Heavy posterior lean with transfers.Ambulated 12
feet x 1 +25 feet x 2 with rolling walker and assistance ranging from mod assist x 1 to mod assist x 2
1. 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 Neuro recommending:aspirin and clopidogrel total of 3 months then aspirin 81 mg daily thereafter. Secondary prophylaxis with aspirin, statin, and
blood pressure control (SBP less than 180 and diastolic less than 100 to participate with therapy for ischemic stroke). Continue to monitor neurologic status.
2. HTN:losartan/HCTZ 100/25mg. , monitor closely
3. HLD: Atorvastatin
4. Bowel: Colace and Senna, PRN bisacodyl.
5. DVT Prophylaxis: Medical and heparin 5000 units SQ bid
This note was dictated using a voice recognition system. Please excuse any typographical errors from dehydrogenation operator. If you believe there are any discrepancies, please notify our office.

Documented by User: Sarkis Knox MD 07/27/23 22:21
Consultation - Medical
-
Referring Provider: Dr. Juani Galan
Chief Complaint: CVA with ataxia.
History of Present Illness: 63-year-old right-handed male with PMH of (hypertension, Anxiety, BPH) presents to the emergency department on 07/23/2023 for evaluation of abrupt onset dizziness, vomiting and associated right-sided ear discomfort.
Denies any weakness or numbness to the arms or legs.� States that he had an upper respiratory tract infection within the past month. CT scan of head was negative and his symptoms were felt to be most consistent with vestibular neuritis given on
fatigue nystagmus and resolved dizziness while lying flat and profoundly vertiginous when attempting to sit upright and unsteady on his feet.�He was started on Prednisone. He had no other neurologic deficits and no visual anomalies concerning for
posterior circulation stroke and thrombolytics were not indicated.
Seen by neurology who recommended aspirin 325 mg, clopidogrel 300 mg and starting DAPT therapy tentatively for 3 weeks duration pending imaging of his neck and head due to additional features of direction changing nystagmus, binocular diplopia and
left-sided arm ataxia likely cerebellar or medullary infarct. He was also started on atorvastatin.
MRI brain demonstrates a acute to subacute infarction involving the central and left superior cerebellar hemisphere, also extending slightly anteriorly to involve the posterior angelica and midbrain.
MRA of the head and neck demonstrates some vessel abnormalities in the posterior circulation with evidence of intracranial atherosclerosis in intracranial vertebral arteries as well as basilar artery.� No occlusions, no pathology that would warrant
endovascular intervention.
Etiology of stroke highly likely to be atherosclerotic/large vessel atherosclerotic disease in posterior circulation, risk factors of age, obesity, hypertension
Echo: Normal biventricular size and systolic function without regional wall motion
�abnormality. Estimated LVEF 60-65%.
�Trace aortic regurgitation.
Past Medical History: Hypertension, anxiety
Procedure History: Hernia repair
Family History: Father and brother both had known cerebral aneurysms
Social History:
Functional Level Premorbidly: Independent with all activities
Functional Level Currently: Requires mod assist x 1 for transfer from bed to rolling walker and for toilet transfer secondary to instability. Cues for hand placement with transfer and to not pull from rolling walker. Heavy posterior lean with
transfers.Ambulated 12 feet x 1 +25 feet x 2 with rolling walker and assistance ranging from mod assist x 1 to mod assist x 2 entire area has been navigating in front of chair. Ataxic gait pattern and poor coordination, wide POS, increased use of
upper extremities on rolling walker, staggered stance and mobility, shuffling gait. Can stand with strong support of 2 people.
Tobacco: Denies
Alcohol: Denies
Drug use: Denies
Lives with: Spouse
24-hour assistance available: Yes
Number of floors: 2, split-level home
# steps to enter:6
# steps to second floor: 10 steps
Potential First floor set up:No
Driving: yes
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
�
Allergies:
Allergy/AdvReac Type Severity Reaction Status Date / Time
No Known Allergies Allergy Unverified 07/23/23 10:48
Review of Systems:
Constitutional: (x) Normal _
Eye: diplopia
Ear/Nose/Throat: (x) Normal _
Respiratory: (x) Normal _
Cardiovascular: HTN
Gastrointestinal: (x) Normal _
Genitourinary: (x) Normal _
Musculoskeletal: (x) Normal _
Integumentary: (x) Normal _
Neurologic: cva, ataxia
Psychiatric: (x) Normal _
Endocrine: (x) Normal _
Hematologic/Lymphatic: (x) Normal _
Allergic/Immunologic: (x) Normal _
Medications:
Active Current Visit Medication List
Category Date Time Status
0.9% Sodium Chloride [Nss (Preservative Free)] Med 07/26/23 08:42 Active
0.5 ml IV PRN PRN
Acetaminophen [Tylenol] Med 07/23/23 15:12 Active
500 mg PO QIDPRN PRN
Aspirin Low Dose EC [Aspir Low (Enteric Coated)] Med 07/26/23 08:00 Active
81 mg PO DAILY
Clopidogrel Bisulfate [Plavix] Med 07/26/23 08:00 Active
75 mg PO DAILY
Escitalopram Oxalate [Lexapro] Med 07/24/23 08:00 Active
10 mg PO DAILY
Flush (0.9% Sodium Chloride) [Flush (Nss)] Med 07/23/23 16:00 Active
See Dose Instructions IV PER PROTOCOL
Gabapentin [Neurontin] Med 07/23/23 19:50 Active
300 mg PO TIDPRN PRN
Heparin Med 07/26/23 20:00 Active
5,000 units SC Q12
HydrALAZINE [Apresoline] Med 07/26/23 03:47 Active
5 mg IV Q4HPRN PRN
Lorazepam [Ativan] Med 07/26/23 08:31 Active
1 mg IV PRN PRN
Losartan/Hydrochlorothiazide [Hyzaar 100-25 Tablet] Med 07/26/23 08:00 Active
1 tab PO DAILY
Meclizine [Antivert] Med 07/23/23 15:12 Active
12.5 mg PO Q8HPRN PRN
Multivitamin [Theragran] Med 07/24/23 08:00 Active
1 tablet PO DAILY
Ondansetron Injectable [Zofran] Med 07/23/23 15:12 Active
4 mg IV Q6HPRN PRN
Tamsulosin [Flomax] Med 07/24/23 08:00 Active
0.4 mg PO DAILY
Tizanidine [Zanaflex] Med 07/23/23 15:12 Active
2 mg PO TIDPRN PRN
Vitals:
Temp Pulse Resp BP Pulse Ox
97.9 F 77 18 143/70 95
07/27/23 07:00 07/27/23 08:42 07/27/23 07:00 07/27/23 08:42 07/27/23 11:12
Height 5 ft 8 in
Actual Weight 84.397 kg
Body Mass Index (BMI) 28.3
Physical Exam:
General Appearance/Observation: Well-developed, well-nourished male in no apparent distress.
Pain/Comfort Assessment: Denies
Mood/Affect: Appropriate, pleasant
Integumentary/Operative Site:
�� Pressure Ulcer Evaluation: absent over heels.
Eyes: Conjunctiva/Lids: normal ��� Pupils: pupils equal round and reactive to light and Accommodation
Ears/Nose/Throat: oral mucosa moist,� throat clear.������������ Lips/Teeth/Gums: normal
Neck: No muscle spasm or tenderness
Cardiovascular: Heart: regular, no murmur
Pulses: dorsalis pedis 2+ bilaterally
Respiratory: Respiratory Effort/Chest Expansion: normal ������ Auscultation: Clear to auscultation bilaterally
Gastrointestinal: abdomen not tender, no distension, normal abdominal bowel sounds
Genitourinary: No Jacobs
Extremities: Edema: None Cyanosis: None Trophic changes: None
Neurology Exam:
Orientation: Alert, Oriented to self, Time, Place
Memory: Intact for immediate medical concerns
Repetition: Intact
Comprehension: Intact
Two step command: Intact
Naming: Intact
Cranial Nerves:
�� CNII: Pupillary light reflex: Intact��� Visual Field: Intact, blurry vision
�� CN III, IV, : Extraocular muscles: Intact, few beats of horizontal nystagmus
�� CN V: Facial Sensation at Forehead: Intact, Maxilla: Intact, Mandible: Intact
�� CN VII: Facial movement: Symmetric
�� CN VIII: Hearing: Normal
�� CN IX/X: Speech & swallow: Normal, Position of Uvula: Midline
�� CN XI: Shoulder shrug: Symmetric
�� CN XII: Tongue protrusion: Midline
Sensory:
�� Light touch: Intact in bilateral upper and lower extremities
��
Reflexes:
�� Biceps: 2+ bilaterally
�� Brachioradialis: 2+ bilaterally
�� Triceps: 2+ bilaterally
�� Patellar: 2+ bilaterally
�� Achilles: 2+ bilaterally
�� Babinski: Down going bilaterally
�� Clonus: None
�� Victor Hugo: positive bilaterally
Cerebellar: Dysmetria/Ataxia:on the left side with nose to finger coordination
Musculoskeletal: Motor: (Manual muscle scale 0-5)
Muscle SA EF WE EE FF FA HF KE DF EHL PF
Right� 5 5 5 5 5 5 5 5 5 5 5
Left 5 5 5 5 5 5 5 5 5 5 5
Tone: Normal in all extremities
Range of Motion: Passively within normal limits in all extremities
Lab Results
Labs
WBC 7.6 10^3/uL (4.8-10.8) 07/26/23 05:25
RBC 3.98 10^6/uL (4.70-6.10) L 07/26/23 05:25
Hgb 12.2 g/dL (13.0-18.0) L 07/26/23 05:25
Hct 35.1 % (39.0-52.0) L 07/26/23 05:25
MCV 88.2 fL (80.0-94.0) 07/26/23 05:25
MCH 30.7 pg (27.0-31.0) 07/26/23 05:25
MCHC 34.8 g/dL (33.0-37.0) 07/26/23 05:25
RDW 12.2 % (11.5-14.5) 07/26/23 05:25
Plt Count 197 10^3/uL (130-400) D 07/26/23 05:25
MPV 10.0 fL (7.4-10.4) 07/26/23 05:25
Abs Immat Gran (auto) 0.0 10^3/uL (0-0.05) 07/26/23 05:25
Absolute Neuts (auto) 4.7 10^3/uL (1.4-6.5) 07/26/23 05:25
Absolute Lymphs (auto) 2.1 10^3/uL (1.2-3.4) 07/26/23 05:25
Absolute Monos (auto) 0.8 10^3/uL (0.1-0.6) H 07/26/23 05:25
Absolute Eos (auto) 0.0 10^3/uL (0-0.7) 07/26/23 05:25
Absolute Basos (auto) 0.0 10^3/uL (0-0.2) 07/26/23 05:25
Immature Gran % 0.4 % (0-0.5) 07/26/23 05:25
Neutrophils % 61.8 % (42.2-75.2) 07/26/23 05:25
Lymphocytes % 26.8 % (20.5-51.1) 07/26/23 05:25
Monocytes % 10.7 % (1.7-9.3) H 07/26/23 05:25
Eosinophils % 0.0 % (0-6) 07/26/23 05:25
Basophils % 0.3 % (0-2) 07/26/23 05:25
Nucleated RBC % 0 % (-) 07/26/23 05:25
Sodium 134 mmol/L (135-145) L 07/26/23 05:25
Potassium 3.9 mmol/L (3.5-5.1) 07/26/23 05:25
Chloride 102 mmol/L (98-107) 07/26/23 05:25
Carbon Dioxide 30 mmol/L (22-30) 07/26/23 05:25
BUN 20 mg/dl (9-20) 07/26/23 05:25
Creatinine 1.0 mg/dL (0.7-1.3) 07/26/23 05:25
Estimated Creat Clear 73 ml/min 07/26/23 05:25
eGFR > 60.00 07/26/23 05:25
Glucose 118 mg/dl (70-99) H 07/26/23 05:25
Hemoglobin A1c 7.4 % (4.0-5.6) H 07/26/23 05:25
Calcium 8.7 mg/dl (8.4-10.2) 07/26/23 05:25
Total Bilirubin 0.7 mg/dl (0.2-1.3) 07/26/23 05:25
AST 27 U/L (17-59) 07/26/23 05:25
ALT 21 U/L (0-50) 07/26/23 05:25
Alkaline Phosphatase 56 U/L (38-126) 07/26/23 05:25
Total Protein 5.9 g/dl (6.3-8.2) L 07/26/23 05:25
Albumin 3.5 g/dl (3.5-5.0) 07/26/23 05:25
Triglycerides 191 mg/dl (10-149) H 07/26/23 05:25
Total Cholesterol 192 mg/dl (50-199) 07/26/23 05:25
LDL Cholesterol, Calc 112 mg/dl 07/26/23 05:25
VLDL Cholesterol, Calc 38 mg/dl (0-30) H 07/26/23 05:25
HDL Cholesterol 42 mg/dl 07/26/23 05:25
Hepatitis C Antibody Cancelled 07/23/23 15:30
�
Diagnostic Results: as per HPI
Assessment 63-year-old right-handed male with PMH of (hypertension, Anxiety, BPH) presents to the emergency department on 07/23/2023 for evaluation of abrupt onset dizziness, vomiting and associated right-sided ear discomfort. MRI brain
demonstrates an acute to subacute infarction involving the central and left superior cerebellar hemisphere, also extending slightly anteriorly to involve the posterior angelica and midbrain.
Plan
PM&R: PT/OT to increase independence with ADLs, improve balance, coordination, endurance, strength, mobility, community reintegration, decreased burden of care on others and family education.
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 Neuro recommending:aspirin and clopidogrel total of 3 months then aspirin 81 mg daily thereafter. Secondary prophylaxis with aspirin, statin, and blood
pressure control (SBP less than 180 and diastolic less than 100 to participate with therapy for ischemic stroke). Continue to monitor neurologic status.
Headache: per neuro can finish prednisone, Meclizine
-Gabapentin 300mg tid prn- may change to standard order if tolerating
Diplopia: -Per neurology: Will need outpatient ophthalmology evaluation for the diplopia from cerebellar stroke, may benefit from prism glasses, eye patch could be used if very uncomfortable
HTN:losartan/HCTZ 100/25mg. , monitor closely
HLD: Atorvastatin
Psych: Psychology consult.�Lexapro. Monitor mood,
Skin: monitor for pressure sores/rashes/lesions.
Pain: acetaminophen or oxycodone as needed.
Bowel: Colace and Senna, PRN bisacodyl.
Bladder: Time void, PVRs, PRN straight cath.
BPH: Continue Flomax
GI Prophylaxis: Pantoprazole
DVT Prophylaxis: Medical and heparin 5000 units SQ bid
Pulmonary: Incentive spirometry
Safety: Continue to reinforce assistance with all transfers.
Code Status:� Full code
Dispo (date/plan/equipment needs): Home with family care.� Social history reviewed.
Functional and Medical Goals: Modified Independent with ADL�s, ambulation, transfers
SUMMARY RECOMMENDATIONS
Discharge Destination: Acute inpatient rehabilitation to increase independence with ADLs, improve balance, coordination, endurance, strength, mobility, community reintegration, decreased burden of care on others and family education.
-Currently requires mod assist x 1 for transfer from bed to rolling walker and for toilet transfer secondary to instability. Cues for hand placement with transfer and to not pull from rolling walker. Heavy posterior lean with transfers.Ambulated
12 feet x 1 +25 feet x 2 with rolling walker and assistance ranging from mod assist x 1 to mod assist x 2
1. 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 Neuro recommending:aspirin and clopidogrel total of 3 months then aspirin 81 mg daily thereafter. Secondary prophylaxis with aspirin, statin, and
blood pressure control (SBP less than 180 and diastolic less than 100 to participate with therapy for ischemic stroke). Continue to monitor neurologic status.
2. HTN:losartan/HCTZ 100/25mg. , monitor closely
3. HLD: Atorvastatin
4. Bowel: Colace and Senna, PRN bisacodyl.
5. DVT Prophylaxis: Medical and heparin 5000 units SQ bid
This note was dictated using a voice recognition system. Please excuse any typographical errors from dehydrogenation operator. If you believe there are any discrepancies, please notify our office.
Attending Statement:
I saw and examined the patient today.� Reviewed care plan with patient, therapy, nursing, and physician construction assistant.� I agree with the above subjective and physical exam, and plan as documented.
[2023-07-26] MEDS: HEPARIN 5000 UNITS SC (19:31)
[2023-07-26] MEDS: NEURONTIN 300 MG PO (22:30)
[2023-07-27] VITALS (8 sets, daily range): BP systolic 130–161; BP diastolic 73–92; PULSE 85–98; O2SAT 94–98
[2023-07-27] MEDS: FLOMAX 0.400000000000000022 MG PO (08:42)
[2023-07-27] MEDS: PLAVIX 75 MG PO (08:42)
[2023-07-27] MEDS: ASPIR LOW (ENTERIC COATED) 81 MG PO (08:42)
[2023-07-27] MEDS: DELTASONE 60 MG PO (08:42)
[2023-07-27] MEDS: THERAGRAN 1 TABLET PO (08:42)
[2023-07-27] MEDS: LEXAPRO 10 MG PO (08:42)
[2023-07-27] MEDS: HYZAAR 100-25 TABLET 1 TAB PO (08:42)
[2023-07-27] MEDS: HEPARIN 5000 UNITS SC ×2 (08:43→20:34)
--- NOTE | 2023-07-27 09:32 | W.PN.NEURO.1 ---
Today's Communication / Plan
-
Continue to monitor with plan of discharge from acute care if patient has no worsening of symptomatology
Monitor for persistent headache
Will follow as needed. Please contact us with additional questions or issues.
Neuro Assessment/Plan
Assessment
63-year-old man with past medical history of hypertension, anxiety presented hospital with sudden onset of vertigo, also with left arm ataxia and binocular vertical diplopia.
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
MRA of the head and neck demonstrates some vessel abnormalities in the posterior circulation with evidence of intracranial atherosclerosis in intracranial vertebral arteries as well as basilar artery. No occlusions, no pathology that would warrant
endovascular intervention.
Etiology of stroke highly likely to be atherosclerotic/large vessel atherosclerotic disease in posterior circulation, risk factors of age, obesity, hypertension
Patient had onset of stroke symptoms on 07/20/2023 1 in the morning and is postop day number 6, is moving out of the window of maximum cerebral edema without evidence of obstructive hydrocephalus or deterioration which can happen with large
cerebellar strokes
Plan
Continue to monitor with plan of discharge from acute care if patient has no worsening of symptomatology
Monitor for persistent headache
Will follow as needed. Please contact us with additional questions or issues.
Subjective/Objective
Subjective Data
Date of Service: July 27, 2023
L side incoordination
Diplopia
Objective Data
Vital Signs
Temp Pulse Resp BP Pulse Ox
36.6 C 77 18 143/70 95
07/27/23 07:00 07/27/23 08:42 07/27/23 07:00 07/27/23 08:42 07/27/23 07:00
Lab Results
07/26/23 05:25
07/26/23 05:25
Sodium 134 mmol/L (135-145) L 07/26/23 05:25
Potassium 3.9 mmol/L (3.5-5.1) 07/26/23 05:25
BUN 20 mg/dl (9-20) 07/26/23 05:25
Glucose 118 mg/dl (70-99) H 07/26/23 05:25
Calcium 8.7 mg/dl (8.4-10.2) 07/26/23 05:25
LDL Cholesterol, Calc 112 mg/dl 07/26/23 05:25
Patient Allergies
No Known Allergies Allergy (Unverified 07/23/23 10:48)
Review of Systems
-
History Source: Patient
All other systems: Reviewed and negative
EENT: Tinnitis (right) and Other (diplopia); Negative Swallowing Difficulty
Respiratory: Cough (rare); Negative Trouble Breathing
Cardiac: Negative Chest Pain
Abdomen/GI: Negative Incontinence of Stool
Genitourinary: Negative Incontinence
Musculoskeletal: Negative Back Pain or Neck Pain
Neuro: Headache (10/28 with cough only); Negative Dizzy
Physical Exam
-
General: Comfortable
Eyes: No Ptosis
HEENT: Normocephalic and Moist Mucous Membranes
Neck: Full Range of Motion
Respiratory: No Dyspnea
Cardiac: No JVD
GI: Non-distended
Skin: Unremarkable
Extremities: No Clubbing, No Cyanosis and No Edema
Psych: Intact Judgement/Insight
Extended Neurological Exam
Mood & Affect: Mood Unremarkable and Affect Unremarkable
Attention Span & Concentration: Awake, Alert, Interactive and No Difficulty with 2 Step Request
Memory: Unremarkable
Tremor: Hand Tremor Absent and Head Tremor Absent
Involuntary Movement: None
Speech: Quality Unremarkable and Quantity Unremarkable
Cranial Nerve II: Left Eye: Pupillary Size Unremarkable and Visual Salgado Grossly Intact
Cranial Nerve II: Right Eye: Pupillary Size Unremarkable and Visual Salgado Grossly Intact
Cranial Nerves III, IV, : Extraocular Movement: Extraocular Movement Full in all Directions and Other (Left eye 1+ exotropia); Negative Nystagmus with Extreme Gaze to Left or Nystagmus with Extreme Gaze to Right
Cranial Nerve VII: Facial Symmetry: Normal Facial Symmetry
Cranial Nerve VIII: Hearing: Unremarkable Hearing to Normal Conversational Volume
Muscle Bulk & Tone: Bulk Unremarkable and Tone Unremarkable
Pronator Drift: No Drift in Upper Extremities
Touch Sensation: Unremarkable
Coordination: Other (Left arm ataxia on finger to nose, minimal on left heel blair maneuver)
Modified [place] Score (MRS)
-
MRS Score:
Data Reviewed
-
MRI Head: Report Reviewed and Image Reviewed
Labs: Ordered and Report Reviewed
Reviewed with: Physician, Nurse Practioner and Patient
Old Records: Summarized
--- NOTE | 2023-07-27 09:38 | W.PN.HOSP.TC ---
Today's Communication/Plan
-
.
Assessment / Plan
Assessment / Plan
Physical Exam
-
General: Well Developed and No Apparent Distress
HEENT: Normocephalic, Atraumatic, Moist Mucous Membranes.
Respiratory: Clear to Auscultation
Cardiac: Regular Rhythm and S1/S2; Negative Murmur, Rub or Gallop
GI: Soft, Nontender, Nondistended and Normal Bowel Sounds.
Rectal: No rectal bleeding noted.
Musculoskeletal: No Clubbing, No Cyanosis and No Edema
Skin: Negative Rash
Neuro: Awake, Alert, Oriented, AO x 3 and Nonfocal/Grossly Intact
Psych: Calm
#�left-sided PICA territory ischemic cerebellar infarct
MRI showed large stroke with mass effect but no hydrocephalus.
Patient presented with acute onset of dizziness and with diplopia/left UE ataxia, gait ataxia.
Started on dual antiplatelet therapy with aspirin and clopidogrel for 3 months then aspirin 81 mg thereafter. Atorvastatin 40 mg. LDL 112, total cholesterol 192, triglyceride 191, HDL 42.
Echocardiogram showed normal mild left ventricular function and size, trace aortic regurgitation. LVEF 60-65%.
Symptomatic treatment of dizziness with meclizine. Discussed with Dr. Barragan. Will evaluate the patient.
Patient will benefit from outpatient ophthalmology evaluation for treatment of diplopia from cerebellar stroke, possible benefit from eye-patch/prism glasses. No driving until further neurology evaluation.
MRA of neck showed no gross narrowing of the common carotid arteries on both sides.
Appreciate neurology and rehab help.
# Hyponatremia, mild
#Hypokalemia
Replaced
#Primary hypertension
restarted losartan/HCTZ.
BP stable
#Anxiety
Mood is pleasant
Cont Lexapro
# BPH
Continue Flomax
# Non specific Neuropathy
cont tizanidine
seems takes gabapentin prn
DVT ppx, SQ Heparin
Full code
Total time spent to see the patient, examine the patient on the floor, review data and lab results, discuss treatment plan with patient, and nursing staff around 59 minutes
Anticipated Discharge: Within 24 hours
Subjective/Interval History
-
Date of Service: July 27, 2023
No chest pain
No sob
No abd pain
still diplopia
Objective Data
-
Vital Signs:
Vital Signs
Temp Pulse Resp BP Pulse Ox
97.9 F 77 18 143/70 95
07/27/23 07:00 07/27/23 08:42 07/27/23 07:00 07/27/23 08:42 07/27/23 07:00
I&O
07/26/23 07/27/23 07/28/23
06:59 06:59 06:59
Intake Total 1140 / 1140 1140 / 1140
Output Total 1375 / 1375
Balance 1140 / 1140 -235 / -235
[2023-07-27] MEDS: TYLENOL 500 MG PO (11:31)
[2023-07-27] MEDS: NEURONTIN 300 MG PO (17:21)
[2023-07-27] MEDS: CLARITIN 10 MG PO (17:57)
[2023-07-28] VITALS (7 sets, daily range): BP systolic 115–135; BP diastolic 67–92; PULSE 100–102; O2SAT 96–97; BMI 27.5
[2023-07-28] MEDS: HEPARIN 5000 UNITS SC ×2 (08:01→19:44)
[2023-07-28] MEDS: ASPIR LOW (ENTERIC COATED) 81 MG PO (08:12)
[2023-07-28] MEDS: HYZAAR 100-25 TABLET 1 TAB PO (08:13)
[2023-07-28] MEDS: PLAVIX 75 MG PO (08:14)
[2023-07-28] MEDS: FLOMAX 0.400000000000000022 MG PO (08:14)
[2023-07-28] MEDS: LEXAPRO 10 MG PO (08:15)
[2023-07-28] MEDS: THERAGRAN 1 TABLET PO (08:15)
--- NOTE | 2023-07-28 09:47 | W.DCSUMMARY ---
Discharge Summary
Discharge Data
Date of Admission: 07/27/23
Date of Discharge: 07/30/23
-
Pending Results: No
Hospital Course
63 years old male who presented with history of acute onset of dizziness, right-sided ear discomfort�. He was initially diagnosed with possible vertigo secondary to hypertension or benign positional vertigo. Scan of the head was negative.
Patient was given nausea medication, as needed meclizine. His symptoms initially improved significantly and he was kept in the hospital for observation. He did not have hypotension. Patient started to have recurrent nausea. He also had blurred
vision and noted walking difficulty. He was started on prednisone for treatment of vertigo. He had some improvement but continued to have diplopia with left-sided incoordination noted. Patient was sent for magnetic resonance imaging studies (
MRI-MRA)of the brain. Neurologist evaluated the patient. He was started on treatment for possible stroke pending further imaging studies. Patient was given dual anti-platelet therapy for presumed stroke event. Subsequently, brain MRI showed
left-sided acute to subacute infarction involving the central left superior cerebellar hemisphere, extending slightly anteriorly to involve the posterior angelica and midbrain, adjacent to the fourth ventricle. There was mild associated mass effect but
no evidence of obstructive hydrocephalus. Patient's symptoms started to improve. He did not have further vertigo attacks or dizziness. He was able to tolerate diet. Headache resolved and he started to have physical therapy. Echocardiogram of
the heart showed normal left ventricular function and size with ejection fraction 60 to 65% with trace aortic regurgitation. Neurology recommended to continue dual antiplatelet therapy for 3 months then aspirin thereafter with atorvastatin therapy.
Patient was evaluated by physical therapy and recommended acute rehabilitation placement. Patient was evaluated by Dr. Barragan and was discharged to acute rehabilitation unit. Patient remained hemodynamically stable and was discharged in a
stable condition.
Physical Exam
-
General: Well Developed and No Apparent Distress
HEENT: Normocephalic, Atraumatic, Moist Mucous Membranes.
Respiratory: Clear to Auscultation
Cardiac: Regular Rhythm and S1/S2; Negative Murmur, Rub or Gallop
GI: Soft, Nontender, Nondistended and Normal Bowel Sounds.
Rectal: No rectal bleeding noted.
Musculoskeletal: No Clubbing, No Cyanosis and No Edema
Skin: Negative Rash
Neuro: Awake, Alert, Oriented, AO x 3 patient followed commands. Slight incoordination noted on [id number] test on the left side. Mild ataxic gait,
Psych: Calm
Total discharge time spent to see the patient, examine the patient on the floor, review data and lab results, discuss discharge plan with patient, case preparer and liner and nursing staff around 69 minutes
Discharge Plan
-
Patient Disposition: Acute Rehab Facility
Discharge Diagnosis/Procedures: Left cerebellar stroke
Diet: Low Fat
Activity: With assistance
Driving Restrictions: Not until seen by your Dr
Referrals:
Everardo Ojeda MD [Active] - in one month
Alexander Pugh MD [Family Provider] - in less than 1 week
Prescriptions:
New
meclizine 12.5 mg Tablet
12.5 mg PO Q8HPRN PRN (Reason: dizziness) Qty: 30 0RF
clopidogrel 75 mg Tablet
75 mg PO DAILY Qty: 30 0RF
aspirin 81 mg Tablet,Delayed Release (Dr/Ec)
81 mg PO DAILY Qty: 30 0RF
Continued
tizanidine 2 mg Tablet
2 mg PO TID PRN (Reason: muscle spasms)
therapeutic multivitamin Tablet
1 tab PO DAILY
acetaminophen [Tylenol Extra Strength] 500 mg Tablet
500 mg PO QID PRN (Reason: mild pain)
losartan-hydrochlorothiazide 100-25 mg Tablet
1 tab PO DAILY
tamsulosin 0.4 mg Capsule
0.4 mg PO DAILY
gabapentin 300 mg Capsule
300 mg PO TID PRN (Reason: foreign body sensation/throat)
Patient Comments:
07/23/2023, pt. takes this med. as needed.
escitalopram oxalate 10 mg Tablet
10 mg PO DAILY
tadalafil 5 mg tablet
5 mg PO HS
Discharge Orders:
Discharge Patient (As Directed); Ordered 07/28/23
Ordered By: Juani Galan
--- NOTE | 2023-07-28 10:16 | W.PN.HOSP.TC ---
Today's Communication/Plan
-
possible dc
Assessment / Plan
Assessment / Plan
Physical Exam
-
General: Well Developed and No Apparent Distress
HEENT: Normocephalic, Atraumatic, Moist Mucous Membranes.
Respiratory: Clear to Auscultation
Cardiac: Regular Rhythm and S1/S2; Negative Murmur, Rub or Gallop
GI: Soft, Nontender, Nondistended and Normal Bowel Sounds.
Rectal: No rectal bleeding noted.
Musculoskeletal: No Clubbing, No Cyanosis and No Edema
Skin: Negative Rash
Neuro: Awake, Alert, Oriented, AO x 3 and Nonfocal/Grossly Intact
Psych: Calm
#�left-sided PICA territory ischemic cerebellar infarct
MRI showed large stroke with mass effect but no hydrocephalus.
Patient presented with acute onset of dizziness and with diplopia/left UE ataxia, gait ataxia.
Started on dual antiplatelet therapy with aspirin and clopidogrel for 3 months then aspirin 81 mg thereafter. Atorvastatin 40 mg. LDL 112, total cholesterol 192, triglyceride 191, HDL 42.
Echocardiogram showed normal mild left ventricular function and size, trace aortic regurgitation. LVEF 60-65%.
Symptomatic treatment of dizziness with meclizine. Discussed with Dr. Barragan. Will evaluate the patient.
Patient will benefit from outpatient ophthalmology evaluation for treatment of diplopia from cerebellar stroke, possible benefit from eye-patch/prism glasses. No driving until further neurology evaluation.
MRA of neck showed no gross narrowing of the common carotid arteries on both sides.
Appreciate neurology and rehab help.
# Hyponatremia, mild
#Hypokalemia
Replaced
#Primary hypertension
restarted losartan/HCTZ.
BP stable
#Anxiety
Mood is pleasant
Cont Lexapro
# BPH
Continue Flomax
# Non specific Neuropathy
cont tizanidine
seems takes gabapentin prn
DVT ppx, SQ Heparin
Full code
Total time spent to see the patient, examine the patient on the floor, review data and lab results, discuss treatment plan with patient, and nursing staff around 49 minutes
Anticipated Discharge: Today
Subjective/Interval History
-
Date of Service: July 28, 2023
No issues
feeling better
less diplopia noted
Objective Data
-
Vital Signs:
Vital Signs
Temp Pulse Resp BP Pulse Ox
98.1 F 83 16 133/92 95
07/28/23 07:16 07/28/23 08:13 07/28/23 07:16 07/28/23 08:13 07/28/23 08:06
I&O
07/27/23 07/28/23 07/29/23
06:59 06:59 06:59
Intake Total 1140 / 1140 900 / 900
Output Total 1375 / 1375 450 / 450
Balance -235 / -235 450 / 450
[2023-07-28] MEDS: OCEAN, SALINE MIST 2 SPRAYS NASAL (10:41)
[2023-07-28] MEDS: FLUSH (NSS) 1 FLUSH IV (10:49)
--- NOTE | 2023-07-28 14:00 | CM ---
CM following re: d/c planning
Chart reviewed
Pt medically stable for d/c pending insurance auth for [facility]
CM called and discussed case with clinical liaison Gee Olmstead and patient meets acute rehab criteria
CM called pre-cert dept for [facility] and faxed 46 pages of clinical information to [phone]
CM was not provided a pending auth. number just a call reference # [id number]
CM has kept patient updated on the process
CM also spoke with the patient's hospitalist & floor RN to inform awaiting insurance auth at this time
PLAN; d/c to [facility] pending insurance auth
[2023-07-28] MEDS: TYLENOL 500 MG PO (19:56)
[2023-07-28] MEDS: NEURONTIN 300 MG PO (19:59)
[2023-07-29 07:50] VITALS: BP 128/88
[2023-07-29] MEDS: THERAGRAN 1 TABLET PO (09:43)
[2023-07-29] MEDS: HEPARIN 5000 UNITS SC ×2 (09:43→20:27)
[2023-07-29] MEDS: LEXAPRO 10 MG PO (09:43)
[2023-07-29] MEDS: ASPIR LOW (ENTERIC COATED) 81 MG PO (09:43)
[2023-07-29] MEDS: FLOMAX 0.400000000000000022 MG PO (09:43)
[2023-07-29] MEDS: HYZAAR 100-25 TABLET 1 TAB PO (09:43)
[2023-07-29] MEDS: PLAVIX 75 MG PO (09:44)
[2023-07-29] MEDS: FLUSH (NSS) 1 FLUSH IV (09:45)
--- NOTE | 2023-07-29 11:59 | W.PN.HOSP.TC ---
Today's Communication/Plan
-
dc
Assessment / Plan
Assessment / Plan
Physical Exam
-
General: Well Developed and No Apparent Distress
HEENT: Normocephalic, Atraumatic, Moist Mucous Membranes.
Respiratory: Clear to Auscultation
Cardiac: Regular Rhythm and S1/S2; Negative Murmur, Rub or Gallop
GI: Soft, Nontender, Nondistended and Normal Bowel Sounds.
Rectal: No rectal bleeding noted.
Musculoskeletal: No Clubbing, No Cyanosis and No Edema
Skin: Negative Rash
Neuro: Awake, Alert, Oriented, AO x 3 and Nonfocal/Grossly Intact
Psych: Calm
#�left-sided PICA territory ischemic cerebellar infarct
MRI showed large stroke with mass effect but no hydrocephalus.
Patient presented with acute onset of dizziness and with diplopia/left UE ataxia, gait ataxia.
Started on dual antiplatelet therapy with aspirin and clopidogrel for 3 months then aspirin 81 mg thereafter. Atorvastatin 40 mg. LDL 112, total cholesterol 192, triglyceride 191, HDL 42.
Echocardiogram showed normal mild left ventricular function and size, trace aortic regurgitation. LVEF 60-65%.
Symptomatic treatment of dizziness with meclizine. Discussed with Dr. Barragan. Will evaluate the patient.
Patient will benefit from outpatient ophthalmology evaluation for treatment of diplopia from cerebellar stroke, possible benefit from eye-patch/prism glasses. No driving until further neurology evaluation.
MRA of neck showed no gross narrowing of the common carotid arteries on both sides.
Appreciate neurology and rehab help.
# Hyponatremia, mild
#Hypokalemia
Replaced
#Primary hypertension
restarted losartan/HCTZ.
BP stable
#Anxiety
Mood is pleasant
Cont Lexapro
# BPH
Continue Flomax
# Non specific Neuropathy
cont tizanidine
seems takes gabapentin prn
DVT ppx, SQ Heparin
Full code
Total time spent to see the patient, examine the patient on the floor, review data and lab results, discuss treatment plan with patient, and nursing staff around 45 minutes
Anticipated Discharge: Today
Subjective/Interval History
-
Date of Service: July 29, 2023
No new neuro deficits
No chest pain
No sob
Objective Data
-
Vital Signs:
Vital Signs
Temp Pulse Resp BP Pulse Ox
97.8 F 78 16 128/88 98
07/29/23 07:50 07/29/23 07:50 07/29/23 07:50 07/29/23 07:50 07/29/23 07:50
I&O
07/28/23 07/29/23 07/30/23
06:59 06:59 06:59
Intake Total 900 / 900 900 / 900
Output Total 450 / 450 950 / 950
Balance 450 / 450 -50 / -50
--- NOTE | 2023-07-29 15:41 | CM ---
CM following re: d/c planning
Chart reviewed
Pt is stable for d/c; awaiting insurance authorization
CM called [facility] multiple times today and was told that it could take up to 24-48 hours for clinicals to be received
Dyson liabrisa Olmstead also called to f/u on the status of patient authorization and was told the same
CM met with the patient and his spouse at bedside to inform we are still waiting for insurance auth and are hoping its received tomorrow
No additional d/c needs to note
PLAN; d/c to [facility] pending insurance auth
[2023-07-29 15:45] VITALS: BP 112/75
[2023-07-29 16:30] VITALS: BP 111/72; PULSE 102; O2SAT 100
[2023-07-29] MEDS: ZANAFLEX 2 MG PO (20:34)
[2023-07-29] MEDS: TYLENOL 500 MG PO (20:34)
[2023-07-29] MEDS: NEURONTIN 300 MG PO (20:35)
[2023-07-29 23:14] VITALS: BP 102/67
[2023-07-30 07:10] VITALS: BP 123/86; BP 126/88; BP 133/86; PULSE 120; PULSE 84; PULSE 92
[2023-07-30] MEDS: FLOMAX 0.400000000000000022 MG PO (08:33)
[2023-07-30] MEDS: LEXAPRO 10 MG PO (08:33)
[2023-07-30] MEDS: PLAVIX 75 MG PO (08:33)
[2023-07-30] MEDS: HEPARIN 5000 UNITS SC (08:33)
[2023-07-30] MEDS: THERAGRAN 1 TABLET PO (08:33)
[2023-07-30] MEDS: ASPIR LOW (ENTERIC COATED) 81 MG PO (08:33)
[2023-07-30] MEDS: HYZAAR 100-25 TABLET 1 TAB PO (08:33)
--- NOTE | 2023-07-30 09:35 | W.PN.HOSP.TC ---
Addendum entered and electronically signed by Juani Galan MD 07/30/23 16:36:
Addendum
d/w case resource manager
appropriate arrangements done to dc
End
Total discharge time spent to see the patient, examine the patient on the floor, review data and lab results, discuss discharge plan with patient and nursing staff around 65 minutes.
Original Note:
Today's Communication/Plan
-
.
Assessment / Plan
Assessment / Plan
Physical Exam
-
General: Well Developed and No Apparent Distress
HEENT: Normocephalic, Atraumatic, Moist Mucous Membranes.
Respiratory: Clear to Auscultation
Cardiac: Regular Rhythm and S1/S2; Negative Murmur, Rub or Gallop
GI: Soft, Nontender, Nondistended and Normal Bowel Sounds.
Rectal: No rectal bleeding noted.
Musculoskeletal: No Clubbing, No Cyanosis and No Edema
Skin: Negative Rash
Neuro: Awake, Alert, Oriented, AO x 3 and Nonfocal/Grossly Intact
Psych: Calm
#�left-sided PICA territory ischemic cerebellar infarct
He reported vision is better than before, gait is better, hand coordination is still off
MRI showed large stroke with mass effect but no hydrocephalus.
Patient presented with acute onset of dizziness and with diplopia/left UE ataxia, gait ataxia.
Started on dual antiplatelet therapy with aspirin and clopidogrel for 3 months then aspirin 81 mg thereafter. Atorvastatin 40 mg. LDL 112, total cholesterol 192, triglyceride 191, HDL 42.
Echocardiogram showed normal mild left ventricular function and size, trace aortic regurgitation. LVEF 60-65%.
Symptomatic treatment of dizziness with meclizine. Discussed with Dr. Barragan. Will evaluate the patient.
Patient will benefit from outpatient ophthalmology evaluation for treatment of diplopia from cerebellar stroke, possible benefit from eye-patch/prism glasses. No driving until further neurology evaluation.
MRA of neck showed no gross narrowing of the common carotid arteries on both sides.
Appreciate neurology and rehab help.
# Hyponatremia, mild
#Hypokalemia
Replaced
#Primary hypertension
restarted losartan/HCTZ.
BP stable
#Anxiety
Mood is pleasant
Cont Lexapro
# BPH
Continue Flomax
# Non specific Neuropathy
cont tizanidine
seems takes gabapentin prn
DVT ppx, SQ Heparin
Full code
Await placement
Pt wants to verify his co-pay also
Total time spent to see the patient, examine the patient on the floor, review data and lab results, discuss treatment plan with patient, and nursing staff around 45 minutes
Anticipated Discharge: Today
Subjective/Interval History
-
Date of Service: July 30, 2023
No chest pain
No sob
Objective Data
-
Vital Signs:
Vital Signs
Temp Pulse Resp BP Pulse Ox
98.2 F 84 18 133/86 96
07/30/23 07:10 07/30/23 08:33 07/30/23 07:10 07/30/23 08:33 07/30/23 07:10
I&O
07/29/23 07/30/23 07/31/23
06:59 06:59 06:59
Intake Total 900 / 900 600 / 600
Output Total 950 / 950 1800 / 1800
Balance -50 / -50 -1200 / -1200
[2023-07-30 15:05] VITALS: BP 101/69
--- NOTE | 2023-07-30 15:37 | CM ---
Addendum entered by Estela Dela Cruz 07/30/23 16:45:
Pt approved for acute rehab level of care
Pt approved for 7days
SOC 07/30 through 08/06 with LCD 08/05
Auth # [id number]
Concurrent reviews can be faxed to [phone]
Ramya Horn is the UR RN & she can be reached at [phone]
Original Note:
CM following re: d/c planning
Chart reviewed
Pt has been medically stable for d/c for the past 48 hours; unfortunately [facility] has not confirmed insurance determination yet
CM has placed several calls and finally was able to speak directly to SANTANA Reynoso RN at [phone] and the case has now been forwarded to the medical affairs manager for review
Updated clinicals were faxed to [phone] per Ramya's request
The patient and his spouse who is at bedside are patiently waiting for transfer to [facility]
CM has been updating Brittany Olmstead at [facility] regarding d/c process
CM will update patient's record once case is reviewed by medical affairs manager
PLAN; CM following for d/c needs; awaiting determination decision at this time
Report: [phone]
== END 2023-07-30 18:41 | DRG 65 ==
LOC: 4 EAST ACU 08:16
PROVIDERS: Physician Assistant; ADMITTING PHYSICIAN Hospitalist; ATTENDING PHYSICIAN Internal Medicine; CONSULT PHYSICIAN Physical Medicine & Rehabilitation; CONSULT PHYSICIAN Student in an Organized Health Care Education/Training Program; EMERGENCY PHYSICIAN Emergency Medicine; FAMILY PHYSICIAN Internal Medicine
DX: I63.542 Cerebral infarction due to unspecified occlusion or stenosis of left cerebellar artery (principal); E87.1 Hypo-osmolality and hyponatremia; H93.3X9 Disorders of unspecified acoustic nerve; E87.6 Hypokalemia; I11.9 Hypertensive heart disease without heart failure; F41.9 Anxiety disorder, unspecified; N40.0 Benign prostatic hyperplasia without lower urinary tract symptoms; G62.9 Polyneuropathy, unspecified; Z79.82 Long term (current) use of aspirin; M79.18 Myalgia, other site; E78.5 Hyperlipidemia, unspecified
CPT/HCPCS: 70450; 70544; 70548; 70551; 80048; 80053; 80061; 83036; 85025; 87902; 92523; 93005; 93306; 96374; 96375; 97112; 97116; 97129; 97163; 97167; 97535; 99285; A9585